=== PATIENT | female | born 1970 | race Caucasian/White ===

== ENCOUNTER 2017-08-31 10:31 | Emergency (ER) | payer MEDICAID ==
[~2017-08-31] VITALS: Ht 160 cm; Wt 69.9 kg
[~2017-08-31 10:31] MED LIST: CYMBALTA60 MG PO; GABAPENTIN100 M1 PO; PREMARIN 0.3MG0.3 MG PO; VALACYCLOVIR H500 M1 PO
--- NOTE | 2017-08-31 11:00 | Emergency Room Report ---
History of Present Illness Time Seen by [id number] Presenting Problem in Triage Pt arrived:Walked Presenting Problem:PT REPORTS L EAR PAIN Onset of symptoms date/time:08/30/17/ or onset unknown for:MEDICAL HX UNKNOWN Treatment Prior to Arrival: [employer] Provided by: Sepsis Risk Assessment: Temp: 98.8 B/P: 126/64 MAP: 84 Pulse: 79 Resp: 18 Recent fever? N Clinical Suspician of Infection? N Mental Status: 1 - Regular (Normal Baseline) Sepsis Risk:Low Sepsis Risk Have you (or family members/close friends) recently traveled outside the [place]? N If Yes, where/when: Have you had exposure to infectious disease within the past month? N TB? Other? Specify: Comment The patient complains of pain in her left ear going through to her left eye. She says that she has a history of migraines, but the symptoms are different. She has had sinus congestion for 2 weeks. No fever. No sore throat, no cough. ALLERGIES Coded Allergies: Penicillins (Intermediate, 07/22/17) sertraline (From ZOLOFT) (Intermediate, 07/22/17) Home Medications Reported Medications Gabapentin (Gabapentin 100MG) 100 MG PO TID DULOXETINE HCL (Cymbalta 60MG) 60 MG PO DAILY Conjugated Estrogens (Premarin 0.3MG. Tablet) 0.3 MG PO DAILY History Medical History General CAD? No Angina: No [place]: No Hypertension? No Hyperlipidemia? No CHF? No DVT? No PE? No COPD? No Asthma? No Anemia? No GERD? No Gastric ulcers? No GI Bleed? No Hernia? No Thyroid Problems? No Hypothyroidism? No CVA? No Seizures? No Diabetes? No Renal Insuffiency? No End Stage Renal Disease? No UTI? No Stones? No BPH? No GB Disease: No Nephritic Syndrome? No Asplenia? No Hepatitis? No Sickle Cell Disease? No Arthritis? No Migraines? Yes Depression? Yes Cancer? 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 Respiratory denies cough Physical Exam Vital Signs Vital Signs Date Time Temp Pulse Resp B/P Pulse O2 O2 Flow FiO2 Ox Delivery Rate 08/31 1131 98.8 71 18 115/78 97 08/31 1035 98.8 79 18 126/64 97 General Appearance no apparent distress Eye Exam - bilateral eye normal exam, bilateral eye PERRL, bilateral eye EOMI Ear, Nose, Throat tympanic membranes, external auditory canals normal. Ears nontender to manipulation., sinuses nontender Neck normal inspection, non-tender, supple, full range of motion Respiratory Status Yes: trachea midline, chest symmetrical. No: respiratory distress. Lung Sounds bilateral: normal breath sounds, lungs clear. 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 No Comment Requests Tylenol for pain Results/Orders Current Medication Orders Sig/Gladys Start time Last Medication Dose Route Stop Time Status Admin Azithromycin 0 .STK-MED ONE 08/316 DC PO Acetaminophen 0 .STK-MED ONE 08/315 DC PO Acetaminophen 650 MG ONCE ONE 08/31 1115 DC 08/31 PO 08/31 1116 1127 Azithromycin 500 MG ONCE ONE 08/31 1115 DC 08/31 PO 08/31 1116 1128 Departure Departure Disposition DC Home or Self Care(routine) Clinical Impression Primary Impression: Sinusitis Qualifiers: Sinusitis location: unspecified location Chronicity: acute Recurrence: non-recurrent Qualified Code: J01.90 - Acute sinusitis, unspecified Condition STABLE Patient Instructions DI for Sinusitis Additional Instructions Off work on 08/31/17. Tylenol or ibuprofen for pain. Follow-up with your primary care provider if not improved in 4-5 days Prescriptions Current Visit Scripts Azithromycin (Zithromax) 250 MG PO DAILY #4 TAB ED Critical Care Critical Care No at [id number]
--- NOTE | 2017-08-31 11:00 | Emergency Room Report ---
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 N Clinical Suspician of Infection? N Mental Status: 1 - Regular (Normal Baseline) Sepsis Risk:Low Sepsis Risk Have you (or family members/close friends) recently traveled outside the [place]? N If Yes, where/when: Have you had exposure to infectious disease within the past month? N TB? Other? Specify: Comment The patient complains of pain in her left ear going through to her left eye. She says that she has a history of migraines, but the symptoms are different. She has had sinus congestion for 2 weeks. No fever. No sore throat, no cough. ALLERGIES Coded Allergies: Penicillins (Intermediate, 07/22/17) sertraline (From ZOLOFT) (Intermediate, 07/22/17) Home Medications Reported Medications Gabapentin (Gabapentin 100MG) 100 MG PO TID DULOXETINE HCL (Cymbalta 60MG) 60 MG PO DAILY Conjugated Estrogens (Premarin 0.3MG. Tablet) 0.3 MG PO DAILY History Medical History General CAD? No Angina: No [place]: No Hypertension? No Hyperlipidemia? No CHF? No DVT? No PE? No COPD? No Asthma? No Anemia? No GERD? No Gastric ulcers? No GI Bleed? No Hernia? No Thyroid Problems? No Hypothyroidism? No CVA? No Seizures? No Diabetes? No Renal Insuffiency? No End Stage Renal Disease? No UTI? No Stones? No BPH? No GB Disease: No Nephritic Syndrome? No Asplenia? No Hepatitis? No Sickle Cell Disease? No Arthritis? No Migraines? Yes Depression? Yes Cancer? 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 Respiratory denies cough Physical Exam Vital Signs Vital Signs Date Time Temp Pulse Resp B/P Pulse O2 O2 Flow FiO2 Ox Delivery Rate 08/31 1131 98.8 71 18 115/78 97 08/31 1035 98.8 79 18 126/64 97 General Appearance no apparent distress Eye Exam - bilateral eye normal exam, bilateral eye PERRL, bilateral eye EOMI Ear, Nose, Throat tympanic membranes, external auditory canals normal. Ears nontender to manipulation., sinuses nontender Neck normal inspection, non-tender, supple, full range of motion Respiratory Status Yes: trachea midline, chest symmetrical. No: respiratory distress. Lung Sounds bilateral: normal breath sounds, lungs clear. 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 No Comment Requests Tylenol for pain Results/Orders Current Medication Orders Sig/Gladys Start time Last Medication Dose Route Stop Time Status Admin Azithromycin 0 .STK-MED ONE 08/316 DC PO Acetaminophen 0 .STK-MED ONE 08/315 DC PO Acetaminophen 650 MG ONCE ONE 08/31 1115 DC 08/31 PO 08/31 1116 1127 Azithromycin 500 MG ONCE ONE 08/31 1115 DC 08/31 PO 08/31 1116 1128 Departure Departure Disposition DC Home or Self Care(routine) Clinical Impression Primary Impression: Sinusitis Qualifiers: Sinusitis location: unspecified location Chronicity: acute Recurrence: non-recurrent Qualified Code: J01.90 - Acute sinusitis, unspecified Condition STABLE Patient Instructions DI for Sinusitis Additional Instructions Off work on 08/31/17. Tylenol or ibuprofen for pain. Follow-up with your primary care provider if not improved in 4-5 days Prescriptions Current Visit Scripts Azithromycin (Zithromax) 250 MG PO DAILY #4 TAB ED Critical Care Critical Care No at [id number]
[2017-08-31] MEDS ORDERED: ZITHROMAX Z-PA250 M2 PO (11:15)
[2017-08-31 11:31] VITALS: BP 115/78
== END 2017-08-31 11:32 | disposition home or self-care (01) ==
LOC: ER 10:31
DX: J01.90 Acute sinusitis, unspecified (principal); Z88.0 Allergy status to penicillin; Z87.891 Personal history of nicotine dependence